=== PATIENT | male | born 2000 | race Caucasian/White ===

== ENCOUNTER 2020-04-24 13:24 | Outpatient (CLI) | payer OTHER ==
--- NOTE | 2020-04-24 14:19 | XRAY Report ---
PROCEDURE: Foot 2 View LT INDICATIONS: LT FOOT PAIN TECHNIQUE: 2 views of the foot were acquired. COMPARISON: None FINDINGS: Bones: No fractures or dislocations. No suspicious bony lesions. Soft tissues: No tibiotalar joint effusion. Achilles tendon appears normal. IMPRESSION: Unremarkable radiographic examination of left foot. Reviewed by: Mohan Wiley MD on 04/24/2020 1:18 PM BEAR Approved by: Mohan Wiley MD on 04/24/2020 1:18 PM AKDT Station ID: [id number]
== END 2020-04-24 13:25 | disposition home or self-care (01) ==
LOC: DI.N 13:24
PROVIDERS: ATTEND Family Medicine
DX: M79.672 Pain in left foot (principal)